=== PATIENT | female | born 1985 | race American Indian/Alaskan Native ===

== ENCOUNTER 2016-10-15 06:20 | Day surgery (SDC) | payer MEDICAID ==
--- NOTE | 2016-10-15 07:33 | Anesthesia Consultation ---
Anesthesia Consult and Med Hx Date of service: 10/15/16 - Airway Anesthetic Teeth Evaluation: Good ROM Head & Neck: Adequate Mental/Hyoid Distance: Adequate Mallampati Class: Class I Intubation Access Assessment: Good - Pulmonary Exam CTA: Yes - Cardiac Exam Cardiac Exam: RRR - Pre-Operative Health Status ASA Pre-Surgery Classification: ASA3 Proposed Anesthetic Plan: General - Pulmonary Hx Smoking: Yes (marijuana) Hx Sleep Apnea: Yes - Other Systems Hx Obesity: Yes (BMI>40) - Additional Comments Anesthesia Medical History Comments: No previous anesthesia complications. Hx of MANGLE FEEDER shunt, but otherwise healthy.
--- NOTE | 2016-10-15 07:34 | Anesthesia Day of Surgery ---
Anesthesia Day of Surgery - Day of Surgery Patient Examined: Yes Patient H&P Reviewed: Yes Patient is NPO: Yes
--- NOTE | 2016-10-15 07:51 | Discharge Summary ---
Providers - Providers Date of discharge: 10/15/16 Attending physician: KALA CHILDS Hospitalization Condition: Good Disposition: DISCHARGED TO HOME OR SELFCARE Core Measure Documentation - Palliative Care Palliative Care/ Comfort Measures: Not Applicable - Core Measures Any of the following diagnoses?: none Exam - Physical Exam Narrative exam: unchanged from pre-op Plan Weight Bearing Status: Weight Bear as Tolerated
[2016-10-15] MEDS ORDERED: NACL 0.9% 1000 ML 1,000 ML IV SCH (08:00)
[2016-10-15] MEDS ORDERED: DIPRIVAN 10 MG/ML IV ONE ×2 (08:01→09:50)
[2016-10-15] MEDS ORDERED: WATER FOR IRRIG STERILE IR ONE (09:15)
--- NOTE | 2016-10-15 09:51 | Operative Report ---
Operative Report Operative Report: OPERATIVE REPORT - EGD DATE 10/15/16 SURGERY: Upper endoscopy. SURGEON: Elma Licona M.D. [employer] EXCHANGER CLEANER: Yonny Person MD PRE OP DX: dyspepsia POST OP DX: hiatal hernia TYPE OF ANESTHESIA: MAC. ESTIMATED BLOOD LOSS: None. COMPLICATIONS: None. SPECIMENS REMOVED: None. FINDINGS: 1. moderate size hiatal hernia. 2. Otherwise, normal esophagus, stomach and first portion of duodenum. INDICATIONS:INDICATION FOR PROCEDURE: Patient is a 31-year-old female with a long history of morbid obesity. She is planned to have a weight loss procedure and is here for preoperative planning EGD. PROCEDURE DETAILS: After consent was reviewed, patient was taken back to the operating room where patient was placed in the left lateral decubitus position and a bite block was placed in the mouth. After a time-out was called, MAC anesthesia was initiated. I then passed the endoscope into her oropharynx, into her esophagus, visualized the entire esophagus, which was all within normal limits. I then visualized the stomach and the first portion of the duodenum and there were no abnormalities I could clearly visualize. I then retroflexed the scope in the stomach and visualized the hiatus and I could see a moderate size hiatal hernia. I then desufflated the stomach and removed the endoscope. Patient tolerated procedure well and was transferred to recovery room in good and stable condition.
[2016-10-15 10:22] VITALS: BP 137/73
[2016-10-15] MEDS ORDERED: ROBINUL ONE (10:48)
[2016-10-15] MEDS ORDERED: XYLOCAINE MPF 2% ONE (10:48)
[2016-10-15] MEDS ORDERED: NEO SYNEPHRINE ONE (10:48)
--- NOTE | 2016-10-15 11:01 | Post Anesthesia Evaluation ---
- Post Anesthesia Evaluation Patient Participated: Yes Airway Patent: Yes Stable Respiratory Function: Yes Nausea/Vomiting: No Temp > 96.8F: Yes Pain Manageable: Yes Adequeate Hydration: Yes Anesthesia Complications: No Block Receding Appropriately: Not Applicable Patient on Ventilator: No
== END 2016-10-15 06:21 | disposition home or self-care (01) ==
LOC: GIO 06:20
PROVIDERS: ATTEND Surgery
DX: K44.9 Diaphragmatic hernia without obstruction or gangrene (principal); F12.90 Cannabis use, unspecified, uncomplicated; G47.30 Sleep apnea, unspecified; F32.9 Major depressive disorder, single episode, unspecified; E66.01 Morbid (severe) obesity due to excess calories; Z68.42 Body mass index [BMI] 45.0-49.9, adult; Z98.890 Other specified postprocedural states
CPT/HCPCS: 43235; 81025; J2704; J2370

== ENCOUNTER 2016-10-22 06:04 | Inpatient (IN) | payer MEDICAID ==
[2016-10-11 13:12] LABS: Basophils % (Auto) 0.3 % (0.0-1.8); Eosinophils % (Auto) 3.1 % (0.0-4.3); Hematocrit 38.7 % (30.3-42.9); Hemoglobin 12.6 gm/dl (10.1-14.3); Mean Corpuscular HGB Conc 33 % (30-34); Mean Corpuscular Hemoglobin 29 pg (28-32); Mean Corpuscular Volume 89 fl (79-97); Platelet Count 385 K/mm3 (140-440); Red Blood Count 4.37 M/mm3 (3.65-5.03); Red Cell Distribution Width 15.6 % (13.2-15.2); White Blood Count 8.1 K/mm3 (4.5-11.0)
--- NOTE | 2016-10-11 13:12 | Anesthesia Consultation ---
Anesthesia Consult and Med Hx Date of service: 10/22/16 - Airway Anesthetic Teeth Evaluation: Good ROM Head & Neck: Adequate Mental/Hyoid Distance: Adequate Mallampati Class: Class II Intubation Access Assessment: Probably Good - Pulmonary Exam CTA: Yes - Cardiac Exam Cardiac Exam: RRR - Pre-Operative Health Status ASA Pre-Surgery Classification: ASA3 Proposed Anesthetic Plan: General - Pulmonary Hx Smoking: Yes (marijuana) Hx Asthma: No Hx Sleep Apnea: Yes (+CPAP) - Cardiovascular System Hx Hypertension: No - Central Nervous System Hx Seizures: No CVA: No Hx Back Pain: Yes (HERNIATED DISC) Hx Psychiatric Problems: Yes (DEPRESSION) - Endocrine Hx Renal Disease: No Hx Liver Disease: No Hx Insulin Dependent Diabetes: No Hx Thyroid Disease: No Hx Hypothyroidism: No - Other Systems Hx Substance Use: Yes (MARIJUANA) Hx Obesity: Yes (MORBID OBESITY)
[2016-10-11 13:23] LABS: Alanine Aminotransferase 22 units/L (7-56); Albumin 3.8 g/dL (3.9-5); Albumin/Globulin Ratio 1.2 %; Alkaline Phosphatase 56 units/L (35-129); Anion Gap 15 mmol/L; Blood Urea Nitrogen 7 mg/dL (7-17); Carbon Dioxide 23 mmol/L (22-30); Chloride 100.3 mmol/L (98-107); Glucose 94 mg/dL (65-100); Potassium 3.7 mmol/L (3.6-5.0); Sodium 135 mmol/L (137-145); Total Protein 7.1 g/dL (6.3-8.2)
[~2016-10-22 06:04] MED LIST: ANCEF/STERILE WATER 2 GM/20 ML IV ONE; NACL 0.9% 1000 ML 1,000 ML IV SCH; PEPCID IV NR; REGLAN IV NR; TRANSDERM-SCOP TD NR; VERSED IV NR
[2016-10-22] MEDS ORDERED: NACL BACTERIOSTATIC INFILTRATI ONE (06:34)
[2016-10-22] MEDS ORDERED: ROBINUL ONE (06:49)
[2016-10-22] MEDS ORDERED: DIPRIVAN 10 MG/ML IV ONE (06:49)
[2016-10-22] MEDS ORDERED: ZEMURON IV ONE (06:49)
[2016-10-22] MEDS ORDERED: QUELICIN ONE (06:49)
[2016-10-22] MEDS ORDERED: DILAUDID ONE (06:49)
[2016-10-22] MEDS ORDERED: XYLOCAINE MPF 2% ONE (06:49)
[2016-10-22] MEDS ORDERED: NEOSTIGMINE ONE (06:49)
--- NOTE | 2016-10-22 06:56 | Anesthesia Day of Surgery ---
Anesthesia Day of Surgery - Day of Surgery Patient Examined: Yes Patient H&P Reviewed: Yes Patient is NPO: Yes
[2016-10-22] MEDS ORDERED: ZOFRAN IV PRN ×2 (06:59→11:00)
[2016-10-22] MEDS ORDERED: SUBLIMAZE IV PRN (06:59)
[2016-10-22] MEDS ORDERED: ANCEF/STERILE WATER 2 GM/20 ML IV NR (07:00)
[2016-10-22] MEDS ORDERED: FLAGYL 500 MG/100 ML 500 MG/100 ML BAG IV NR (07:00)
[2016-10-22] MEDS ORDERED: MARCAINE-EPI 0.5%-1:200,000 INFILTRATI ONE ×2 (07:14→08:24)
[2016-10-22] MEDS ORDERED: XYLOCAINE 1% 20 mL ONE (07:14)
[2016-10-22] MEDS ORDERED: XYLOCAINE 1% 20 mL INFILTRATI ONE (07:28)
[2016-10-22] MEDS ORDERED: MARCAINE-EPI/PF 0.5%-1:200,000 INFILTRATI ONE ×2 (07:28)
[2016-10-22] MEDS ORDERED: NACL 0.9% IR ONE ×2 (07:28)
[2016-10-22] MEDS ORDERED: WATER FOR IRRIG STERILE IR ONE (07:28)
[2016-10-22] MEDS ORDERED: ZOFRAN ONE ×2 (07:53→08:34)
[2016-10-22] MEDS ORDERED: LOVENOX SUB-Q NR (08:00)
[2016-10-22] MEDS ORDERED: DECADRON ONE (08:20)
[2016-10-22] MEDS ORDERED: NACL 0.9% 1000 ML 1,000 ML ONE (08:48)
--- NOTE | 2016-10-22 10:24 | Operative Report ---
Operative Report Operative Report: Operative Report DATE OF PROCEDURE: 10/22/2016 SURGEON: Elma Licona M.D. BLENDING PLANT OPERATOR: Yonny Person MD PREOPERATIVE DIAGNOSIS: Morbid obesity. POSTOPERATIVE DIAGNOSES: Morbid obesity PROCEDURES PERFORMED: 1. Laparoscopic gastric bypass. 2. EGD. ANESTHESIA: General endotracheal tube intubation. SPECIMENS: None. ESTIMATED BLOOD LOSS: Less than 10 mL. FINDINGS: Normal anatomy. COMPLICATIONS: None. INDICATION: is a 31 year-old female with history of morbid obesity. She signed informed consent and expressed understanding of risks and benefits. DESCRIPTION OF PROCEDURE: Patient was brought to the OR suite, laid in supine position. Bilateral lower extremity SCDs were placed. General anesthesia was induced via successful endotracheal tube intubation. Patient's abdomen was prepped and draped in sterile fashion. Using Optiview technique, a 5-mm trocar was placed into the abdominal cavity under direct vision. There was noted to be no gross injury to any intraabdominal structures. 4 working trocars were placed under direct visualization, 12 mm in the right mid abdomen mid clavicular line and four 5-mm trocars in the right upper quadrant, epigastric, left upper quadrant and left mid abdomen. At this time, the ligament of Treitz identified and followed down approximately 30 cm and the jejunum was transected. The distal segment of jejunum was then traced for approximately 75 cm and a stable [id number] jejunojejunostomy was performed. The common enterotomy was closed with 2 firings of the endoscopic stapler. The mesenteric defect was closed with running Surgidac suture. This anastomosis was found to be patent without kink, obstruction or bleeding. At this time, the patient was placed in steep reverse Trendelenburg position. A liver retractor was placed through the epigastric port to elevate the left lateral lobe of the liver. A small gastric pouch was formed. The Ellen limb was then brought in an antegastric antecolic fashion and secured with 2 stay sutures to the gastric pouch. After this, the enterotomies were made with Harmonic scalpel, and a [id number]-on-vbax stapled gastrojejunostomy was performed with a mechanical stapler. After this, a 2-layer running closure using absorbable V-loc suture were done, the first being mucosal approximation prior to completion of the first layer. The anesthesia passed and an EGD scope beyond the anastomosis to act as a stent. The first layer was completed, the second was then performed. After this, the EGD was retracted slightly. A bowel clamp was placed in a proximal Ellen limb. The anastomosis was submerged under saline. Via intraluminal EGD insufflation, there was noted be no bubbles in the saline indicating an airtight anastomosis. There was noted to be no obstruction or bleeding intraluminally in the pouch or the anastomosis. At this time, the scope was removed. The saline was aspirated. Tiseel was placed over the anastomosis. All trocars were removed under direct visualization and the abdomen was then desufflated. The skin incisions were closed with 4-0 Monocryl followed by Dermabond dressings. Patient was awoken and taken to recovery in stable condition. All counts were correct.
[2016-10-22] MEDS: DILAUDID IV PRN ×5 (10:43→23:29)
--- NOTE | 2016-10-22 10:51 | Post Anesthesia Evaluation ---
- Post Anesthesia Evaluation Patient Participated: Yes Airway Patent: Yes Stable Respiratory Function: Yes Temp > 96.8F: Yes Pain Manageable: Yes Adequeate Hydration: Yes Anesthesia Complications: No Block Receding Appropriately: Not Applicable
[2016-10-22] MEDS ORDERED: APRESOLINE IV PRN (11:00)
[2016-10-22] MEDS ORDERED: REGLAN IV PRN (11:00)
[2016-10-22] MEDS: LACTATED RINGERS 1,000 ML IV SCH ×2 (11:57→20:36)
[2016-10-22] MEDS: MYLICON PO PRN ×2 (13:27→23:29)
[2016-10-22] MEDS: FLAGYL 500 MG/100 ML 500 MG/100 ML BAG IV SCH ×2 (14:04→23:14)
[2016-10-22] MEDS: ANCEF/NS 1 GM/50 ML 1 GM/50 ML BAG IV SCH ×2 (15:12→23:13)
[2016-10-22] MEDS: TORADOL IV SCH ×2 (18:11→23:48)
[2016-10-23] MEDS: TORADOL IV SCH ×2 (05:41→10:02)
[2016-10-23] MEDS ORDERED: NORCO PO PRN (06:00)
[2016-10-23] MEDS: FLAGYL 500 MG/100 ML 500 MG/100 ML BAG IV SCH (06:50)
[2016-10-23] MEDS: DILAUDID IV PRN (06:50)
--- NOTE | 2016-10-23 07:17 | Admit Criteria Form ---
Admission Criteria Documentation: AMBULATORY SURGERY EXCEPTION CRITERIA Ambulatory Surgery Exception Criteria ( Place 'X' for any and all applicable criteria): Surgery or procedure performed on ambulatory basis may require inpatient stay for[A] ANY ONE of the following(1)(2)(3)(4)(5)(6)(7)(8)(9): [X] I. A preoperative situation, condition, or finding that warrants inpatient stay as indicated by ANY ONE of the following: [] a) Inpatient care needed because of severity of a disease or condition rather than the surgery (eg, severe cardiac or respiratory disease, severe infection) (15) (16 ) (17) (18) [] b) Emergent procedure (eg, angioplasty for acute ischemia)(19) [] c) Complex surgical approach or situation as indicated by ANY ONE of the following(3): [] i) Open approach needed instead of usual endoscopic, transcatheter, or other less invasive procedure [] ii) Difficult approach because of previous operation [] iii) Airway monitoring required after open neck procedures(20)(21) [] iv) Large mass requiring unusually extensive dissection [] v) Additional complicating feature requiring inpatient care (eg, drain management)(22(23): [X] d) Major surgery in a pt with high anesthetic risk as indicated by ANY ONE of the following (2)(3)(5)(7)(8): [X] i) ASA risk class III or higher (severe systemic disease impairing function) [D] [] ii) Advanced age (eg, older than 85 years)(14)(24) [] iii) Symptomatic heart failure(25) [] iv) Symptomatic asthma or COPD(8)(21) [] v) Morbid obesity with hemodynamic or respiratory problems(20)( 21)(26)(27) [] vi) Obstructive sleep apnea(20)(21) [] vii) Former premature infants who are younger than 60 weeks [] viii) High risk for severe postoperative abnormalities (eg, severe postoperative hypocalcemia after parathyroidectomy for severe hyperparathyroidism)(27)( 28) [] ix) Unstable angina(25) [] e) Drug-related risk requiring inpatient stay as indicated by ANY ONE of the following(5)(10)(14)(32)(33) [] i) Procedure requires discontinuing drugs or other therapy (eg , antiarrhythmic medication, antiseizure medication), which necessitates inpatient observation or treatment.(18)(31) [] ii) Major surgery and high risk drug use as indicated by ANY ONE of the following: [] 1) Active abuse of cocaine or similar drug [] 2) Monoamine oxidase inhibitor use [] 3) Other drug identified as posing risk [] f) Inadequate outpatient care situation as indicated by ANY ONE of the following(5)(10)(14)(32)(33) [] i) Patient lives remote from medical facility and procedure has urgent complication potential, and temporary nearby residence cannot be arranged [] ii) Patient will have postprocedure incapacitation and inadequate assistance at home, or alternative level of care cannot be arranged. [] iii) Patient will have long general anesthesia or procedure side effect resolution time, and competent person to stay with patient on first postoperative night at home or alternative level of care cannot be arranged. []iv) Other inadequate outpatient situation that cannot be handled by other means [] II. A perioperative event, condition, or finding that warrants inpatient stay as indicated by ANY ONE of the following (1)(2)(3): [] a) Inadequate physiologic recovery: cardiovascular, respiratory, or hemodynamic status not normal or near preoperative baseline(18) [] b) Hemodynamic instability [] c) Patient not alert with near normal or baseline mental status [] d) Temperature not normal or as expected and not appropriate for outpatient treatment of condition [] e) Ambulatory or appropriate activity level status not yet achieved post procedure [E](34)(35)(36) [] f) Operative site not appropriate (eg, unexpected or excessive drainage or bleeding) [] g) Postoperative effects not resolved or adequately managed (eg, significant pain or vomiting not appropriate for outpatient or next level of care)(10)(12) [] h) Complicating features requiring inpatient care as indicated by ANY ONE of the following(37): [] i) Severe complications of procedure (eg, bowel injury, airway compromise, vascular injury,severe hemorrhage) [] ii) Extensive (eg, dissection far beyond usual scope of procedure ) or prolonged (eg, 120 minutes beyond usual) surgery needed requiring inpatient postoperative care [] iii) Conversion to an open or complex procedure that requires inpatient care (eg, open vs laparoscopic cholecystectomy, abdominal vs vaginal hysterectomy)(38) [] iv) Comorbid condition or test result identified during or post procedure that requires inpatient care (7) [] v) Malignant hyperthermia(30) [] vi) Other complicating feature requiring inpatient care(22)(23) Inpatient stay may be needed until ALL of the following are present (1)(2)(3)(4) (5)(6)(10)(14)(33)(40): []a) Physiologic recovery: cardiovascular, respiratory, and hemodynamic status normal or near preoperative baseline []b) Hemodynamic stability []c) Patient alert, with near normal or baseline mental status []d) Temperature appropriate: patient afebrile or temperature appropriate for outpt treatment of condition []e) Activity level appropriate: ambulatory or appropriate activity level post procedure []f) Operative site appropriate as indicated by ALL of the following: []i) Site dry or with expected drainage []ii) Any blood noted is as expected for procedure. []g) Postoperative effects resolved or managed as indicated by ALL of the following: []i) Pain management appropriate for outpatient (or next level of) care(10) []ii) Minimal nausea and vomiting: if present, successfully treated with oral medication(12) []iii) Headache, dizziness, or drowsiness (if present) are mild. []h) Voiding status acceptable as indicated by ANY ONE of the following: []i) Voiding spontaneously []ii) No voiding but instructions given for follow-up in 6 to 8 hours []iii) Urinary catheter in place, and instructions given for follow-up []i) Complicating features requiring inpatient care manageable at a lower level of care(37) []j) Comorbid conditions manageable at a lower level of care(37) The original [employer] content created by [employer] has been revised. The portions of the content which have been revised are identified through the use of italic text or in bold, and [facility] [employer] has neither reviewed nor approved the modified material. All other unmodified content is copyright [employer]. Please see references footnoted in the original [employer] edition 2016 Admission Criteria Met: Yes
[2016-10-23] MEDS ORDERED: LOVENOX SUB-Q SCH (10:00)
--- NOTE | 2016-10-23 10:25 | Progress Note ---
Subjective Date of service: 10/23/16 Interval history: Up ambulating in Hallway. Pain at 5 controlled with meds. Denies sore throat hoarseness. NO N/V. Objective - Constitutional Vitals: Vital Signs - 12hr 10/22/16 10/23/16 10/23/16 23:54 08:00 08:28 Temperature 98.9 F 99 F Pulse Rate [ 83 78 From Monitor] Respiratory 20 18 Rate Blood Pressure 130/82 124/80 [Left Arm] O2 Sat by Pulse 100 98 100 Oximetry - Labs CBC & Chem 7: 10/11/16 12:19 10/11/16 12:19
[2016-10-23 13:12] LABS: Basophils % (Auto) 0.1 % (0.0-1.8); Eosinophils % (Auto) 0.2 % (0.0-4.3); Hematocrit 38.2 % (30.3-42.9); Hemoglobin 12.2 gm/dl (10.1-14.3); Mean Corpuscular HGB Conc 32 % (30-34); Mean Corpuscular Hemoglobin 29 pg (28-32); Mean Corpuscular Volume 90 fl (79-97); Platelet Count 351 K/mm3 (140-440); Red Blood Count 4.26 M/mm3 (3.65-5.03); Red Cell Distribution Width 15.5 % (13.2-15.2)
[2016-10-23 13:20] LABS: Alanine Aminotransferase 16 units/L (7-56); Albumin 3.8 g/dL (3.9-5); Albumin/Globulin Ratio 1.4 %; Alkaline Phosphatase 49 units/L (35-129); Anion Gap 18 mmol/L; Blood Urea Nitrogen 3 mg/dL (7-17); Calcium 8.5 mg/dL (8.4-10.2); Carbon Dioxide 25 mmol/L (22-30); Glucose 85 mg/dL (65-100); Potassium 3.1 mmol/L (3.6-5.0); Sodium 141 mmol/L (137-145); Total Protein 6.6 g/dL (6.3-8.2)
[2016-10-23] MEDS: LACTATED RINGERS 1,000 ML IV SCH (13:48)
--- NOTE | 2016-10-23 14:54 | Discharge Summary ---
Providers - Providers Date of Admission: 10/22/16 10:15 Date of discharge: 10/23/16 Attending physician: KALA CHILDS Hospitalization Reason for admission: postop observation Condition: Stable Procedures: lap sleeve gastrectomy Disposition: DISCHARGED TO HOME OR SELFCARE Core Measure Documentation - Palliative Care Palliative Care/ Comfort Measures: Not Applicable - Core Measures Any of the following diagnoses?: none Exam - Physical Exam Narrative exam: NAD VSS Heart: RRR Lungs CTA BL Abd Soft, ND, appropriate TTP around wounds Neuro AAOx3 - Constitutional Vitals: Temp Pulse Resp BP Pulse Ox 98.8 F 91 H 18 145/92 100 10/23/16 12:00 10/23/16 12:00 10/23/16 12:00 10/23/16 12:00 10/23/16 08:28 Plan Activity: advance as tolerated Diet: advance as tolerated, other (bariatric stage 1) Wound: keep clean and dry Follow up with: Nusrat SIMON [Other] - 7 Days
[2016-10-23] MEDS ORDERED: KCL 10MEQ/100ML 10 MEQ/100 ML BAG IV ONE (15:30)
[2016-10-23 17:30] VITALS: BP 123/80
[2016-10-24] MEDS ORDERED: NORCO PO PRN (06:00)
== END 2016-10-23 18:00 | disposition home or self-care (01) | DRG 621 ==
LOC: OR 06:04 → EDSTATUS 08:00 → 2B-SURG 10:15
PROVIDERS: ADMIT Surgery; ATTEND Surgery
PROC: 0D164ZA Bypass Stomach to Jejunum, Percutaneous Endoscopic Approach (ICD-10-PCS; principal; 2016-10-22)
PROC: 0DJ08ZZ Inspection of Upper Intestinal Tract, Via Natural or Artificial Opening Endoscopic (ICD-10-PCS; principal; 2016-10-22)
DX: E66.01 Morbid (severe) obesity due to excess calories (principal); G47.30 Sleep apnea, unspecified; F32.9 Major depressive disorder, single episode, unspecified; M25.50 Pain in unspecified joint; Z68.42 Body mass index [BMI] 45.0-49.9, adult
CPT/HCPCS: 36415; 80053; 81025; 85025; 93005; 93010; 94760; A4217; C9250; J0330; J0690; J1100; J1170; J1650; J1885; J2250; J2405; J2704; J2710; J2765; J3480; J7030; J7120

== ENCOUNTER 2016-11-26 06:06 | Day surgery (SDC) | payer MEDICAID ==
[~2016-11-26 06:06] MED LIST changes: -ANCEF/STERILE WATER 2 GM/20 ML IV ONE; -REGLAN IV NR; -TRANSDERM-SCOP TD NR
[2016-11-26] MEDS ORDERED: NACL BACTERIOSTATIC INFILTRATI ONE (06:44)
--- NOTE | 2016-11-26 06:51 | Anesthesia Consultation ---
Anesthesia Consult and Med Hx Date of service: 11/26/16 - Airway Anesthetic Teeth Evaluation: Good ROM Head & Neck: Adequate Mental/Hyoid Distance: Adequate Mallampati Class: Class II Intubation Access Assessment: Probably Good - Pulmonary Exam CTA: Yes - Cardiac Exam Cardiac Exam: RRR - Pre-Operative Health Status ASA Pre-Surgery Classification: ASA3 Proposed Anesthetic Plan: General - Pulmonary Hx Smoking: No Hx Sleep Apnea: Yes (DX SLEEP APNEA WITH CPAP USE) - Cardiovascular System Hx Hypertension: No - Central Nervous System Hx Seizures: No CVA: No Hx Back Pain: Yes (HERNIATED DISC) Hx Psychiatric Problems: Yes (DEPRESSION) - Endocrine Hx Renal Disease: No Hx Liver Disease: No Hx Insulin Dependent Diabetes: No Hx Thyroid Disease: No Hx Hypothyroidism: No - Other Systems Hx Substance Use: Yes (MARIJUANA OCC) Hx Cancer: No Hx Obesity: Yes (BMI>40)
--- NOTE | 2016-11-26 06:51 | Anesthesia Day of Surgery ---
Anesthesia Day of Surgery - Day of Surgery Patient Examined: Yes Patient H&P Reviewed: Yes Patient is NPO: Yes
[2016-11-26] MEDS ORDERED: DIPRIVAN 10 MG/ML IV ONE (07:13)
[2016-11-26] MEDS ORDERED: DILAUDID ONE ×2 (07:13→08:05)
[2016-11-26] MEDS ORDERED: XYLOCAINE 1% 20 mL ONE (07:13)
[2016-11-26] MEDS ORDERED: NEOSTIGMINE ONE (07:14)
[2016-11-26] MEDS ORDERED: ROBINUL ONE ×2 (07:14)
[2016-11-26] MEDS ORDERED: ZOFRAN ONE (07:14)
[2016-11-26] MEDS ORDERED: XYLOCAINE MPF 2% ONE (07:14)
[2016-11-26] MEDS ORDERED: MARCAINE-EPI/PF 0.5%-1:200,000 INFILTRATI ONE (07:14)
[2016-11-26] MEDS ORDERED: DECADRON ONE (07:14)
[2016-11-26] MEDS ORDERED: ZEMURON IV ONE (07:14)
[2016-11-26] MEDS ORDERED: XYLOCAINE 1% 20 mL INFILTRATI ONE (07:51)
[2016-11-26] MEDS ORDERED: MARCAINE-EPI 0.5%-1:200,000 INFILTRATI ONE (07:51)
[2016-11-26] MEDS ORDERED: NACL 0.9% IR ONE (07:51)
[2016-11-26] MEDS ORDERED: ANCEF/STERILE WATER 2 GM/20 ML IV NR (08:00)
[2016-11-26] MEDS ORDERED: FLAGYL 500 MG/100 ML 500 MG/100 ML BAG IV NR (08:00)
[2016-11-26] MEDS ORDERED: TORADOL ONE (08:53)
--- NOTE | 2016-11-26 09:27 | Discharge Summary ---
Providers - Providers Date of discharge: 11/26/16 Attending physician: UYEN WARE Primary care physician: ZIPPER SLIDE ATTACHER Hospitalization Reason for admission: outpatient surgery Condition: Stable Procedures: Lap Liz Disposition: DC-01 TO HOME OR SELFCARE Core Measure Documentation - Palliative Care Palliative Care/ Comfort Measures: Not Applicable - Core Measures Any of the following diagnoses?: none Exam - Physical Exam Narrative exam: VSS, AF NAD Lungs CTA Heart RRR Abd soft, some wound TTP, dressings clean - Constitutional Vitals: Temp Pulse Resp BP Pulse Ox 98.1 F 58 L 17 110/64 100 11/26/16 07:27 11/26/16 07:27 11/26/16 07:27 11/26/16 07:27 11/26/16 07:27 Plan Activity: advance as tolerated Diet: low carbohydrate (bariatric stage 4-5) Special Instructions: no heavy lifting Follow up with: PRIMARY CARE, [Primary Care Provider] - 7 Days
[2016-11-26] MEDS ORDERED: ZOFRAN IV PRN (10:00)
[2016-11-26] MEDS ORDERED: NORCO PO NR (10:00)
[2016-11-26] MEDS ORDERED: DILAUDID IV PRN (10:00)
--- NOTE | 2016-11-26 10:07 | Post Anesthesia Evaluation ---
- Post Anesthesia Evaluation Patient Participated: Yes Airway Patent: Yes Stable Respiratory Function: Yes Nausea/Vomiting: No Temp > 96.8F: Yes Pain Manageable: Yes Adequeate Hydration: Yes Anesthesia Complications: No
--- NOTE | 2016-11-26 12:03 | Operative Report ---
ATTENDING SURGEON: Tera Rivas MD ASSISTANTS: Yonny Person MD and Dr. Maurer. PREOPERATIVE DIAGNOSIS: Symptomatic cholelithiasis POSTOPERATIVE DIAGNOSIS: Symptomatic cholelithiasis. OPERATION PERFORMED: Laparoscopic cholecystectomy. INDICATION FOR PROCEDURE: The patient is a 31-year-old female that recently underwent a Ellen-en-Y gastric bypass. She presented with right upper quadrant pain in the office and ultrasound was ordered showing gallstones. After discussing risks and benefits of the procedure, she decided to consent for it. DESCRIPTION OF PROCEDURE: The patient was brought to the operating room and placed on the operating table in supine position. General endotracheal tube anesthesia was given by the anesthesia team. The patient was prepped and draped under standard fashion. Timeout was called. The patient and procedure were correct. We accessed the abdominal cavity with a Veress needle through the umbilicus through stab incision insufflated up to 15 mmHg. Then, we extended the incision and placed a 10 mm trocar with a 10 mm camera. After doing this, we used previously used incision sites to use 5 mm trocars, two on the right side, one on the left side. Then, using a 5 mm camera, we used a 5 mm trocar on the right side of the patient as camera port and used the umbilicus and the left 5 mm trocar, as working trocars. We retracted the gallbladder cephalically and we dissected the infundibulum of gallbladder, identified the cystic duct and cystic artery, both were dissected out, isolated and clipped and transected in the middle, then we proceeded to use electrocautery to remove the gallbladder from the gallbladder fossa. After doing this, we used a 10 mm Endocatch through the umbilicus port to retrieve the gallbladder. Quick survey of the abdominal cavity showed no intraabdominal bleeding or any intraabdominal organ injury. Then, we proceeded to use the suture passer to do a laparoscopic closure on the umbilicus port and then pneumoperitoneum was reduced, all the trocars were removed and the 5 mm incisions were closed in 1 layer with 4-0 Monocryl and the umbilicus incision at the level of the skin was closed with 4-0 Monocryl running suture. The patient tolerated very well the procedure, was sent to recovery room. The attending, Dr. Rivas was scrubbed and present throughout the entire procedure. Instrument and lap count was correct x 2. JOB# [id number] CARLITA/YAS LAUGHLIN
[2016-11-26 20:11] VITALS: BP 113/73
== END 2016-11-26 11:25 | disposition home or self-care (01) ==
LOC: OR 06:06
PROVIDERS: ATTEND Specialist
DX: K80.10 Calculus of gallbladder with chronic cholecystitis without obstruction (principal); G47.33 Obstructive sleep apnea (adult) (pediatric); F32.9 Major depressive disorder, single episode, unspecified; F12.90 Cannabis use, unspecified, uncomplicated; E55.9 Vitamin D deficiency, unspecified; D50.9 Iron deficiency anemia, unspecified; E66.01 Morbid (severe) obesity due to excess calories; Z68.41 Body mass index [BMI] 40.0-44.9, adult; Z98.84 Bariatric surgery status; Z98.890 Other specified postprocedural states; Z79.899 Other long term (current) drug therapy
CPT/HCPCS: 36415; 47562; 81025; 84132; 88304; J0690; J1100; J1170; J1885; J2250; J2405; J2704; J2710; J7030

== ENCOUNTER 2017-08-06 08:17 | Day surgery (SDC) | payer MEDICAID ==
--- NOTE | 2017-08-06 08:05 | Anesthesia Consultation ---
Anesthesia Consult and Med Hx Date of service: 08/06/17 - Airway Anesthetic Teeth Evaluation: Good ROM Head & Neck: Adequate Mental/Hyoid Distance: Adequate Mallampati Class: Class II Intubation Access Assessment: Probably Good - Pulmonary Exam CTA: Yes - Cardiac Exam Cardiac Exam: RRR - Pre-Operative Health Status ASA Pre-Surgery Classification: ASA3 Proposed Anesthetic Plan: MAC - Pre-Anesthesia Comment Pre-Anesthesia Comments: c/o chest pain and discomfort since April. 12 lead EKG ordered - Pulmonary Hx Sleep Apnea: Yes (does not use her CPAP ) - Central Nervous System Hx Back Pain: Yes (HERNIATED DISC) Hx Psychiatric Problems: Yes (DEPRESSION) - Gastrointestinal Hx Gastroesophageal Reflux Disease: Yes - Other Systems Hx Substance Use: Yes (MARIJUANA OCC)
--- NOTE | 2017-08-06 08:06 | Anesthesia Day of Surgery ---
Anesthesia Day of Surgery - Day of Surgery Patient Examined: Yes Patient H&P Reviewed: Yes Patient is NPO: Yes
[2017-08-06] MEDS ORDERED: NACL 0.9% 1000 ML 1,000 ML IV SCH (09:00)
[2017-08-06] MEDS ORDERED: HURRICAINE ONE 20% TOPICAL SPRAY MM ×2 (09:20→16:14)
[2017-08-06] MEDS ORDERED: DIPRIVAN 10 MG/ML IV ONE ×2 (09:23→14:38)
--- NOTE | 2017-08-06 09:41 | Operative Report ---
Operative Report Operative Report: EGD Post bypass DATE: 08/06/17 OPERATIVE REPORT - EGD PREOP DIAGNOSIS: gastric dyspepsia POSTOP DIAGNOSIS: marginal ulcer, failed GJ SURGERY: Upper endoscopy. SURGEON: Dr. Rob Velásquez MANAGER HIV: Michael Dickey M.D. TYPE OF ANESTHESIA: MAC. ESTIMATED BLOOD LOSS: None. COMPLICATIONS: None. SPECIMENS REMOVED: None. FINDINGS: 1. normal esophagus 2. gastric pouch - 50ml 3. gastrojejunal anastomosis is 30mm 4. small marginal ulcer INDICATIONS:INDICATION FOR PROCEDURE: Patient is a 32-year-old F s/p gastric bypass in 10/22/16. In November she had epigastric pain though to be due to her GB and she then had a cholecystectomy. In April she had abdominal pain but in RLQ and she then had her appendix removed. She still has epigastric pain and chest tightness when she eats. She admits having reflux like symptoms. The patient is here today for evaluation for possible revisional surgery. The patient is here for a planned EGD for gastric dyspepsia. PROCEDURE DETAILS: After consent was reviewed, patient was taken back to the operating room where patient was placed in the left lateral decubitus position and a bite block was placed in the mouth. After a time-out was called, MAC anesthesia was initiated. I then passed the endoscope into the patients oropharynx, into the esophagus, visualized the entire esophagus, which was all within normal limits. I then visualized the gastric pouch which was normal and about 50ml in size. The gastrojejunal anastomosis was normal at about 30mm. The proximal portion of the anum limb revealed a small marginal ulcer on the jejunal side. . I then desufflated the gastric pouch and removed the endoscope. Patient tolerated procedure well and was transferred to recovery room in good and stable condition
--- NOTE | 2017-08-06 09:47 | Discharge Summary ---
Providers - Providers Attending physician: UYEN RIVAS Primary care physician: BENNY DEL VALLE Hospitalization Condition: Good Procedures: egd Hospital course: 32 F wit hx of lap gastric bypass presented for egd due to abdominal pain. She tolerated the procedure well and was discharged home the same day. Disposition: DC-01 TO HOME OR SELFCARE Core Measure Documentation - Palliative Care Palliative Care/ Comfort Measures: Not Applicable - Core Measures Any of the following diagnoses?: none Exam - Physical Exam Narrative exam: no change from prev - Constitutional Vitals: Temp Pulse Resp BP Pulse Ox 98.4 F 82 13 117/76 100 08/06/17 08:23 08/06/17 08:23 08/06/17 08:23 08/06/17 08:23 08/06/17 08:23 Plan Additional Instructions: follow up with Dr. Rivas in the office. Prescriptions will be called in to your pharmacy. Omeprazole and carafate Follow up with: BENNY DEL VALLE MD [Primary Care Provider] - 7 Days
[2017-08-06 10:23] VITALS: BP 105/67
[2017-08-06] MEDS ORDERED: WATER FOR IRRIG STERILE IR ONE ×2 (13:09)
== END 2017-08-06 08:18 | disposition home or self-care (01) ==
LOC: GIO 08:17
PROVIDERS: ATTEND Specialist
DX: K28.9 Gastrojejunal ulcer, unspecified as acute or chronic, without hemorrhage or perforation (principal); K31.89 Other diseases of stomach and duodenum; F32.9 Major depressive disorder, single episode, unspecified; G47.30 Sleep apnea, unspecified; Z99.89 Dependence on other enabling machines and devices; Z90.89 Acquired absence of other organs; Z90.49 Acquired absence of other specified parts of digestive tract; Z98.84 Bariatric surgery status; Z98.890 Other specified postprocedural states; Z79.899 Other long term (current) drug therapy
CPT/HCPCS: 43235; 81025; 93005; 93010; J2704; J7030

== ENCOUNTER 2017-09-17 03:22 | Observation (INO) | payer MEDICAID ==
[2017-09-17] MEDS ORDERED: ASPIRIN PO ONE (03:48)
[2017-09-17 04:58] LABS: BUN/Creatinine Ratio 13; Blood Urea Nitrogen 8 mg/dL (7-17); Calcium 8.7 mg/dL (8.4-10.2); Hemolysis Index 2
[2017-09-17 05:04] LABS: Bilirubin,Urine NEG (Negative); Blood,Urine NEG (Negative); Color,Urine Yellow (Yellow); Mucus,Urine 2+ /HPF; Protein,Urine <15 mg/dL mg/dL (Negative)
[2017-09-17 05:12] LABS: HCG Qualitative,Urine Negative (Negative)
[2017-09-17 05:14] LABS: Basophils % (Auto) 0.7 % (0.0-1.8); Eosinophils # (Auto) 0.2 K/mm3 (0.0-0.4); Eosinophils % (Auto) 3.2 % (0.0-4.3); Hematocrit 39.1 % (30.3-42.9); Hemoglobin 12.7 gm/dl (10.1-14.3); Lymphocytes # (Auto) 3.1 K/mm3 (1.2-5.4); Lymphocytes % (Auto) 44.4 % (13.4-35.0); Mean Corpuscular HGB Conc 33 % (30-34); Mean Corpuscular Hemoglobin 30 pg (28-32); Mean Corpuscular Volume 93 fl (79-97); Monocytes # (Auto) 0.4 K/mm3 (0.0-0.8); Monocytes % (Auto) 5.9 % (0.0-7.3); Platelet Count 344 K/mm3 (140-440); Red Blood Count 4.19 M/mm3 (3.65-5.03); Red Cell Distribution Width 14.3 % (13.2-15.2)
--- NOTE | 2017-09-17 10:27 | Emergency Department Report ---
ED Chest Pain HPI - General Chief Complaint: Chest Pain Stated Complaint: CHEST PAIN Time Seen by Provider: 09/17/17 10:18 Source: patient Mode of arrival: Ambulatory Limitations: No Limitations - History of Present Illness Initial Comments: Patient is 32 years old female with history of gastric bypass surgery last year by Dr. Rivas. Patient presented to the ER complaining of substernal chest pain this been going on since October of last year after she had her surgery. Patient was seen here by Dr. Rivas office for admission for revision of gastric bypass surgery and previous sizing secondary to inadequate wet lost. Patient also stated that she was told that she had hiatal hernia. Patient denied any shortness of breath cough, fever or congestion. MD Complaint: chest pain -: month(s) Pain Location: substernal Severity: moderate Quality: sharp - Related Data Home Medications Medication Instructions Recorded Confirmed Last Taken Calcium Carbonate [Calcium] 500 mg PO DAILY 11/22/16 08/06/17 08/05/17 Ferrous Sulfate [Feosol] 325 mg PO DAILY 11/22/16 08/06/17 08/05/17 Multivit-Min/FA/Lycopen/Lutein 1 tab PO DAILY 11/22/16 08/06/17 08/05/17 [Centrum Silver Tablet] Melatonin 2 oralsyr PO DAILY 08/06/17 08/06/17 08/05/17 Allergies Allergy/AdvReac Type Severity Reaction Status Date / Time No Known Allergies Allergy Verified 11/22/16 16:48 Heart Score - HEART Score History: Moderately suspicious EKG: Non-specific Age: < 45 Risk factors: 1-2 risk factors Troponin: < normal limit HEART Score: 3 - Critical Actions Critical Actions: 0-3 pts:0.9-1.7%risk of adverse cardiac event.Candidate for discharge ED Review of Systems ROS: Stated complaint: CHEST PAIN Other details as noted in HPI Comment: All other systems reviewed and negative Constitutional: denies: chills, fever Respiratory: denies: cough, orthopnea, shortness of breath, SOB with exertion, SOB at rest Cardiovascular: chest pain. denies: palpitations, dyspnea on exertion, orthopnea Gastrointestinal: abdominal pain. denies: nausea, vomiting, diarrhea, constipation, hematemesis, melena, hematochezia Genitourinary: denies: urgency, dysuria, frequency, hematuria, discharge, abnormal menses Skin: denies: rash Neurological: denies: headache, weakness, numbness, paresthesias ED Past Medical Hx - Past Medical History Previous Medical History?: Yes Hx Arthritis: Yes - Surgical History Past Surgical History?: Yes Hx Cholecystectomy: Yes Hx Appendectomy: Yes Additional Surgical History: gastric bypass - Social History Smoking Status: Current Some Day Smoker Substance Use Type: Marijuana - Medications Home Medications: Home Medications Medication Instructions Recorded Confirmed Last Taken Type Calcium Carbonate [Calcium] 500 mg PO DAILY 11/22/16 08/06/17 08/05/17 History Ferrous Sulfate [Feosol] 325 mg PO DAILY 11/22/16 08/06/17 08/05/17 History Multivit-Min/FA/Lycopen/Lutein 1 tab PO DAILY 11/22/16 08/06/17 08/05/17 History [Centrum Silver Tablet] Melatonin 2 oralsyr PO DAILY 08/06/17 08/06/17 08/05/17 History ED Physical Exam - General Limitations: No Limitations General appearance: alert, in no apparent distress - Head Head exam: Present: atraumatic, normocephalic, normal inspection - Eye Eye exam: Present: normal appearance, PERRL - ENT ENT exam: Present: normal exam, normal orophraynx, mucous membranes moist - Neck Neck exam: Present: normal inspection, full ROM. Absent: tenderness, meningismus, lymphadenopathy, thyromegaly - Respiratory Respiratory exam: Present: normal lung sounds bilaterally. Absent: respiratory distress, wheezes, rales, rhonchi, stridor, chest wall tenderness, accessory muscle use, decreased breath sounds, prolonged expiratory - Cardiovascular Cardiovascular Exam: Present: regular rate, normal rhythm, normal heart sounds - GI/Abdominal GI/Abdominal exam: Present: soft, normal bowel sounds. Absent: distended, tenderness, guarding, rebound, rigid, organomegaly, mass, bruit, pulsatile mass , hernia - Extremities Exam Extremities exam: Present: normal inspection, full ROM, normal capillary refill - Back Exam Back exam: Present: normal inspection, full ROM. Absent: tenderness, CVA tenderness (R), CVA tenderness (L), muscle spasm, paraspinal tenderness, vertebral tenderness - Neurological Exam Neurological exam: Present: alert, oriented X3, CN II-XII intact, normal gait - Skin Skin exam: Present: warm, intact, normal color ED Course Vital Signs 04/10/18 04/10/18 03:23 03:40 Temperature 98.4 F 98.4 F Pulse Rate 71 71 Respiratory 18 17 Rate Blood Pressure 117/68 117/68 O2 Sat by Pulse 99 98 Oximetry ED Medical Decision Making - Lab Data Result diagrams: 09/17/17 03:58 09/17/17 03:58 - EKG Data -: EKG Interpreted by Ut EKG shows normal: sinus rhythm Rate: bradycardia - EKG Data Interpretation: no acute changes - Radiology Data Radiology results: report reviewed Referring Physician: MAXX PARMAR Patient Name: EDILBERTO FITZPATRICK Date of : 1985 Sex: Female Report Date: 2017-09-17 Report Status: Finalized Findings [facility] [address] [place] [address] XRay Report Signed Patient: EDILBERTO FITZPATRICK MR#: [id number] : 1985 Acct:[id number] Age/Sex: 32 / F ADM Date: 09/17/17 Loc: ED Attending Dr: Ordering Physician: MAXX PARMAR Date of Service: 09/17/17 Procedure(s): XR chest 1V ap Accession Number(s): [id number] cc: MAXX PARMAR Fluoro Time In Minutes: PORTABLE CHEST: Chest pain. An AP portable view of the chest demonstrates a normal cardiac contour considering the limits of this technique. The lungs are clear with no evidence of infiltrate, fluid or failure. IMPRESSION: Normal portable chest. Transcribed By: [facility] Dictated By: MARGO BAIN MD Electronically Authenticated By: MARGO BAIN MD Signed Date/Time: 09/17/171047 DD/ 46 TD/TT: 09/17/171047 - Medical Decision Making I discussed the patient with Dr. Rivas, he advised to admit the patient to his service to [facility] and he will follow-up with the patient in the hospital. Critical care attestation.: If time is entered above; I have spent that time in minutes in the direct care of this critically ill patient, excluding procedure time. ED Disposition Clinical Impression: Chest pain, Abdominal pain, Complications of gastric bypass surgery Disposition: DC-09 OP ADMIT IP TO THIS HOSP Is pt being admited?: Yes Condition: Stable Instructions: Chest Pain (ED) Referrals: KANA SIMON [Other] - 3-5 Days
--- NOTE | 2017-09-17 11:08 | XRay Report ---
PORTABLE CHEST: Chest pain. An AP portable view of the chest demonstrates a normal cardiac contour considering the limits of this technique. The lungs are clear with no evidence of infiltrate, fluid or failure. IMPRESSION: Normal portable chest.
--- NOTE | 2017-09-17 12:26 | History and Physical Report ---
History of Present Illness Chief complaint: epigastric pain History of present illness: 32 y.o. F with hx of lap gastric bypass October 2016 presents to the hospital with severe epigastric pain. Her pain is crampy and epigastric, non radiating. Severity is 8/10. The pain is worse with eating. She has had a loss of appetite. The pain has been present for several weeks. She recently had an EGD which showed a marginal ulcer. At the time of the EGD she was prescribed carafate and a PPI. She has been taking the carafate 3 times a day not 4. She has been taking the ppi. She admits to daily nsaid use for the last 2 weeks due to tooth pain. her last po intake was 2am . She is passing flatus and having regular bm. She denies nausea or vomiting. Past History Past Medical History: other (GERD. Marginal ulcer) Past Surgical History: Other (lap gastric bypass, EGD, appy, choley. ) Social history: other (hx of NSAID use daily for last 2 weeks, [place]. ) Family history: no significant family history Medications and Allergies Allergies Allergy/AdvReac Type Severity Reaction Status Date / Time No Known Allergies Allergy Verified 11/22/16 16:48 Home Medications Medication Instructions Recorded Confirmed Last Taken Type Calcium Carbonate [Calcium] 500 mg PO DAILY 11/22/16 09/17/17 09/16/17 History Ferrous Sulfate [Feosol] 325 mg PO DAILY 11/22/16 09/17/17 09/16/17 History Multivit-Min/FA/Lycopen/Lutein 1 tab PO DAILY 11/22/16 09/17/17 09/16/17 History [Centrum Silver Tablet] Melatonin 2 oralsyr PO DAILY 08/06/17 09/17/17 09/16/17 History Gabapentin [Neurontin] 300 mg PO BID 09/17/17 09/17/17 09/16/17 History Omeprazole 20 mg PO DAILY 09/17/17 09/17/17 09/16/17 History Sucralfate [Carafate] 1 gm PO Q6HR 09/17/17 09/17/17 09/16/17 History Review of Systems All systems: negative - Constitutional fever, chills, poor appetite - Cardiovascular no chest pain, no orthopnea, no palpitations - Respiratory no cough, no cough with sputum, no excessive sputum, no hemoptysis - Gastrointestinal abdominal pain, other (see hpi ) - Genitourinary Genitourinary: no dyspareunia, no dysmenorrhea, no pelvic pain, no flank pain, no menorrhagia, no dysuria, no urinary frequency - Muskuloskeletal no neck stiffness, no neck pain, no shooting arm pain, no arm numbness/tingling - Integumentary no deferred, no rash, no pruritis, no redness - Neurological no head injury, no transient paralysis, no paralysis - Psychiatric no anxiety, no memory loss, no change in sleep habits - Endocrine no cold intolerance, no heat intolerance, no polyphagia - Hematologic/Lymphatic no easy bruising, no easy bleeding - Allergic/Immunologic no urticaria Exam Vital Signs Temp Pulse Resp BP Pulse Ox 98.4 F 71 18 117/68 99 09/17/17 03:23 09/17/17 03:23 09/17/17 03:23 09/17/17 03:23 09/17/17 03:23 - General physical appearance Positive: well developed, well nourished, no distress - Eyes Positive: PERRL - Neck Positive: no masses - Cardiovascular Rhythm: regular - Extremities Extremities: no ischemia, pulses intact, pulses symmetrical Peripheral Pulses: within normal limits - Breasts Breasts: deferred - Abdomen Abdomen: Present: soft, tender (epigastric pain ), bowel sounds normal, other ( scars healed ) - Genitourinary Female Genitourinary: deferred - Integumentary no rash, no growths - Neurologic Neurologic: alert and oriented to time, place and person, motor strength and sensation are grossly intact - Musculoskeletal normal posture - Psychiatric Psychiatric: appropriate mood/affect, intact judgment & insight, memory intact, cooperative Results - Labs 09/17/17 03:58 09/17/17 03:58 Abnormal lab results 09/17/17 09/17/17 Range/Units 03:58 03:58 Lymph % (Auto) 44.4 H (13.4-35.0) % Potassium 3.5 L (3.6-5.0) mmol/L Creatinine 0.6 L (0.7-1.2) mg/dL Diabetes panel 09/17/17 Range/Units 03:58 Sodium 141 (137-145) mmol/L Potassium 3.5 L (3.6-5.0) mmol/L Chloride 103.7 (98-107) mmol/L Carbon Dioxide 25 (22-30) mmol/L BUN 8 (7-17) mg/dL Creatinine 0.6 L (0.7-1.2) mg/dL Glucose 88 (65-100) mg/dL Calcium 8.7 (8.4-10.2) mg/dL Calcium panel 09/17/17 Range/Units 03:58 Calcium 8.7 (8.4-10.2) mg/dL Pituitary panel 09/17/17 Range/Units 03:58 Sodium 141 (137-145) mmol/L Potassium 3.5 L (3.6-5.0) mmol/L Chloride 103.7 (98-107) mmol/L Carbon Dioxide 25 (22-30) mmol/L BUN 8 (7-17) mg/dL Creatinine 0.6 L (0.7-1.2) mg/dL Glucose 88 (65-100) mg/dL Calcium 8.7 (8.4-10.2) mg/dL Adrenal panel 09/17/17 Range/Units 03:58 Sodium 141 (137-145) mmol/L Potassium 3.5 L (3.6-5.0) mmol/L Chloride 103.7 (98-107) mmol/L Carbon Dioxide 25 (22-30) mmol/L BUN 8 (7-17) mg/dL Creatinine 0.6 L (0.7-1.2) mg/dL Glucose 88 (65-100) mg/dL Calcium 8.7 (8.4-10.2) mg/dL Assessment and Plan 32 y.o. F with hx of lap gastric bypass and Marginal ulcer: Admit to Dr. Rivas. Pt has been treated with carafate and PPI but continues to have abdominal pain. Instructed pt to stop using nsaids. Due to continued pain she will be admitted and be prepped for the OR. After risks and benefits discussed she has agreed to proceed with a diagnostic laparoscopy, revision of GJ, intraoperative EGD and other indicated procedures. NPO IVF INR and T/S ordered. Pain control continue carafate and PPI
[2017-09-17] MEDS ORDERED: FLAGYL 500 MG/100 ML 500 MG/100 ML BAG IV NR (13:00)
[2017-09-17] MEDS ORDERED: LOVENOX SUB-Q NR (13:00)
[2017-09-17] MEDS ORDERED: LACTATED RINGERS 1,000 ML IV SCH (13:00)
[2017-09-17] MEDS ORDERED: ANCEF/STERILE WATER 2 GM/20 ML 2 GM/20 ML SYRINGE IV NR (13:00)
[2017-09-17 13:25] LABS: INR 0.9 (0.87-1.13)
[2017-09-17] MEDS ORDERED: TRANSDERM-SCOP TD SCH (14:00)
[2017-09-17 15:24] VITALS: BP 132/94
--- NOTE | 2017-09-17 15:59 | Discharge Summary ---
Providers - Providers Date of Admission: 09/17/17 11:26 Date of discharge: 09/17/17 Attending physician: UYEN WARE Hospitalization Condition: Good Disposition: DC-01 TO HOME OR SELFCARE Core Measure Documentation - Palliative Care Palliative Care/ Comfort Measures: Not Applicable - Core Measures Any of the following diagnoses?: none Exam - Constitutional Vitals: Temp Pulse Resp BP Pulse Ox 98.4 F 74 16 132/94 100 09/17/17 15:24 09/17/17 15:24 09/17/17 15:24 09/17/17 15:24 09/17/17 15:24 General appearance: Present: no acute distress, well-nourished - EENT Eyes: Present: PERRL, EOM intact ENT: hearing intact, clear oral mucosa, dentition normal - Neck Neck: Present: supple, normal ROM - Respiratory Respiratory effort: normal Respiratory: bilateral: CTA - Cardiovascular Rhythm: regular - Extremities Extremities: no ischemia, pulses intact, No edema, Full ROM - Abdominal General gastrointestinal: Present: soft, normal bowel sounds Localized gastrointestinal: tender: epigastric periumbilical Female genitourinary: Present: deferred - Rectal Rectal Exam: deferred - Integumentary Integumentary: Present: clear, warm, dry - Musculoskeletal Musculoskeletal: strength equal bilaterally - Psychiatric Psychiatric: appropriate mood/affect Plan Activity: no restrictions Weight Bearing Status: Full Weight Bearing Diet: low fat Wound: other Follow up with: KANA SIMON [Other] - 3-5 Days UYEN WARE MD [Staff Physician] - 7 Days Prescriptions: Omeprazole 20 mg PO DAILY #30 tablet.
--- NOTE | 2017-09-17 16:41 | Event Note ---
Pt admitted to taking an NSAID for the last 2 weeks daily and not fully taking her carafate. Dr. Rivas spoke with the patient regarding these issues as they can prevent healing of the marginal ulcer. She must stop taking NSAIDs and fully take the medications as prescribed for the Marginal ulcer that were given to her at a previous visit. She understands she will not be having the surgery today due to the above issues. She will be discharged home.
== END 2017-09-17 16:47 | disposition home or self-care (01) ==
LOC: ED 03:22 → 3A 11:26 → INTOOBSV 11:26 → 3B-SURG 14:43 → 3A 16:19
PROVIDERS: ADMIT Internal Medicine; ATTEND Specialist
DX: K28.9 Gastrojejunal ulcer, unspecified as acute or chronic, without hemorrhage or perforation (principal); K21.9 Gastro-esophageal reflux disease without esophagitis; M19.90 Unspecified osteoarthritis, unspecified site; F17.200 Nicotine dependence, unspecified, uncomplicated; Z98.84 Bariatric surgery status; Z90.49 Acquired absence of other specified parts of digestive tract
CPT/HCPCS: 36415; 71045; 80048; 81001; 81025; 84484; 85025; 85610; 86850; 86900; 86901; 93005; 93010; 96360; 96361; 99285; G0378; J7120